=== PATIENT | male | born 1995 | race Caucasian/White ===

== ENCOUNTER 2020-05-05 14:44 | Emergency (ER) | payer BC ==
[2020-05-05] MEDS ORDERED: HYDROCODONE/ACETAMINOPHEN 5-325 MG TABLET PO ONE (15:06)
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
--- OUTSIDE RECORDS SUMMARY | 2020-05-05 16:02 | XMS REPORT ---
:1995 [facility] [address] [place] [address] Care Team Providers Name Role Phone Unavailable Unavailable Unavailable Allergies, Adverse Reactions, Alerts This patient has no known allergies or adverse reactions. Medications This patient has no known medications. Problems This patient has no known problems. Procedures This patient has no known procedures. Results Test Description Test Time Test Comments Text Results Atomic Results Result Comments SARS-CoV-2 RNA Resp Ql PHUONG+probe 2019-10-23 00:00:00 Test Item Value Reference Range Comments SARS-CoV-2 RNA Resp Ql PHUONG+probe Not detected [facility] Case ID: (test code = 97817-8) [id number] Social History This patient has no known social history. Vital Signs This patient has no known vital signs.
[2020-05-05 16:42] VITALS: BP 138/80
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
== END 2020-05-05 16:40 | disposition home or self-care (01) ==
LOC: ER 14:44
DX: S42.321A Displaced transverse fracture of shaft of humerus, right arm, initial encounter for closed fracture (principal); V86.96XA Unspecified occupant of dirt bike or motor/cross bike injured in nontraffic accident, initial encounter; Y93.79 Activity, other specified sports and athletics; Y92.39 Other specified sports and athletic area as the place of occurrence of the external cause
CPT/HCPCS: 99284